=== PATIENT | female | born 1960 ===

== ENCOUNTER 2016-07-03 22:05 | Emergency (ER) | payer OTHER ==
[~2016-07-03 22:05] MED LIST: AMOXICILLIN500 MG PO; BACTRIM DS TABL1 TAB PO; BENICAR20 MG PO; FLAGYL250 MG PO; GLUCOPHAGE1000 MG PO; HYDROCHLOROTHIA25 MG PO; LANTUS SOLOSTAR3 ML SQ; LEVEMIR100 U/ML SQ; LEVEMIR100 UNITS/ SC; LISINOPRIL40 MG PO; MELOXICAM15 MG PO; NORCO 5/3251 TA1 PO; NOVOLOG100 UNIT/1 SQ; PERCOCET 5/3251 TAB PO; TYLENOL W/CODEI1 TAB PO; UNKNOWN B/P MED; ZOFRAN ODT4 MG/UDTAB PO
[2016-07-03] MEDS ORDERED: INVOKANA300 MG PO (22:36)
[2016-07-03] MEDS ORDERED: ZESTRIL20 M3 PO (22:36)
[2016-07-03] MEDS ORDERED: HUMALOG MI100 UNITS1 SC (22:39)
[2016-07-03] MEDS ORDERED: HUMALOG SC (23:16)
[2016-07-03 23:53] LABS: BASO % 0.4 % (0-2); EOS % 1.3 % (0-7); EOSINOPHIL ABSOLUTE COUNT 0.1 tho/cmm (0.0-0.7); HCT-HEMATOCRIT 37.5 % (34.0-49.0); HGB-HEMOGLOBIN 12.8 gm/dl (12.0-15.5); IMMATURE GRANULOCYTES ABSOLUTE 0.01 tho/cmm (0-0.03); IMMATURE GRANULOCYTES PERCENT 0.1 % (0-0.3); LYMPH % 31.1 % (20-45); LYMPH ABSOLUTE COUNT 2.6 tho/cmm (0.8-4.5); MCH (MEAN CORPUSCULAR HGB) 31.1 pg (28.0-32.0); MCHC MEAN CORPUSCULAR HGB CONC 34.1 % (32.0-36.0); MEAN PLATELET VOLUME 10.6 cmc (9.4-12.4); MONO % 5.7 % (0-12); MONOCYTE ABSOLUTE COUNT 0.5 tho/cmm (0.0-1.2); NEUTROPHIL ABSOLUTE COUNT 5.1 tho/cmm (1.6-8.0); NEUTROPHIL-AUTOMATED 5.1 tho/cmm (1.6-8.0); NEUTROPHILS % 61.4 % (40-80); PLATELET COUNT 269 tho/cmm (150-450); RED BLOOD COUNT 4.12 mil/cmm (4.00-5.20); RED CELL DISTRIBUTION WIDTH 12.8 % (12.4-16.4); WHITE BLOOD COUNT 8.3 tho/cmm (4.0-10.0)
[2016-07-04 00:05] LABS: ANION GAP 10 mmol/L (0-20); BLOOD UREA NITROGEN 17 mg/dl (6-24); CALCIUM 8.8 mg/dl (8.5-10.5); CARBON DIOXIDE-VENOUS 31 mmol/L (22-32); CHLORIDE 104 mmol/l (96-110); CREATININE 0.66 mg/dl (0.50-1.10); GLUCOSE 202 mg/dL (70-110); SODIUM 141 mmol/L (135-145); eGFR VALUE FOR BLACK >90 mL/Min
[2016-07-04 00:06] LABS: POTASSIUM 3.8 mmol/L (3.7-5.1)
== END 2016-07-04 01:07 ==
LOC: EDMED 22:05
PROVIDERS: Emergency Medicine
DX: J06.9 Acute upper respiratory infection, unspecified (principal); M54.2 Cervicalgia; M54.9 Dorsalgia, unspecified; G89.29 Other chronic pain; E11.65 Type 2 diabetes mellitus with hyperglycemia; I10 Essential (primary) hypertension; Z79.4 Long term (current) use of insulin; Z79.899 Other long term (current) drug therapy